=== PATIENT | male | born 1970 | race American Indian/Alaskan Native ===

== ENCOUNTER 2019-04-17 15:25 | Emergency (ER) | payer BC, MEDICAID ==
[2019-04-17] MEDS ORDERED: ASPIRIN 325 MG TAB PO ONE (16:19)
--- NOTE | 2019-04-17 17:03 | XRay Report ---
CHEST 2 VIEWS INDICATION / CLINICAL INFORMATION: Chest Pain. COMPARISON: One view of the chest from 01/23/2019. FINDINGS: SUPPORT DEVICES: A left ICD is in good position. HEART / MEDIASTINUM: No significant abnormality. LUNGS / PLEURA: No significant pulmonary or pleural abnormality. No pneumothorax. ADDITIONAL FINDINGS: No significant additional findings. IMPRESSION: 1. No acute abnormality of the chest. Signer Name: Eduardo Cheung MD Signed: 04/17/2019 4:59 PM Workstation Name: [id number]
[2019-04-17 17:14] LABS: Basophils # (Auto) 0.1 K/mm3 (0.0-0.1); Basophils % (Auto) 0.3 % (0.0-1.8); Eosinophils # (Auto) 0.1 K/mm3 (0.0-0.4); Eosinophils % (Auto) 0.6 % (0.0-4.3); Hemoglobin 16.3 gm/dl (11.8-15.2); Lymphocytes # (Auto) 1.6 K/mm3 (1.2-5.4); Lymphocytes % (Auto) 8.2 % (13.4-35.0); Mean Corpuscular HGB Conc 33 % (32-34); Mean Corpuscular Volume 85 fl (84-94); Monocytes # (Auto) 1.1 K/mm3 (0.0-0.8); Monocytes % (Auto) 5.5 % (0.0-7.3); Platelet Count 280 K/mm3 (140-440); Red Blood Count 5.78 M/mm3 (3.65-5.03); Red Cell Distribution Width 14.1 % (13.2-15.2)
[2019-04-17 17:26] LABS: BUN/Creatinine Ratio 14; Blood Urea Nitrogen 15 mg/dL (9-20); Calcium 9.4 mg/dL (8.4-10.2); Hemolysis Index 31
--- NOTE | 2019-04-17 22:41 | Emergency Department Report ---
ED Dizziness HPI - General Chief Complaint: High BP Stated Complaint: HBP Time Seen by Provider: 04/17/19 22:23 Source: patient, old records reviewed (neg stress test for ischemia, fixed 08/2018 Ef 47%) Mode of arrival: Ambulatory Limitations: No Limitations - History of Present Illness Initial Comments: 49-year-old male with a past medical history of hypertension, CAD with stent 2, CHF with EF of 47% on echo from 2016, and AICD presents to the hospital complains of lightheaded and tired feeling today while at work. 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 He states that he felt lightheaded and tired at work and went to the nurse and his blood pressure was 152/112. He states he feels like he is getting "sick" but only able to characterize it as lightheaded and tired. Patient does complain of some mild mucus production with cough and nasal congestion. He denies fever, chills, headache, sore throat, chest pain, shortness of breath, abdominal pain, or dysuria. Patient states he suffered from constipation with last bowel movement yesterday. He is compliant with all his medications include aspirin and Plavix. He cannot recall this had a more recent stress test since the one hand 2015. 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 Patient denies feeling lightheaded at this time. - Related Data Home Medications Medication Instructions Recorded Confirmed Last Taken Aspirin [Adult Low Dose Aspirin EC] 81 mg PO DAILY 09/12/15 09/12/15 09/12/15 Clopidogrel [Plavix] 75 mg PO QDAY 09/12/15 09/12/15 09/12/15 Furosemide [Lasix TAB] 40 mg PO QDAY 09/12/15 09/12/15 09/12/15 Isosorbide Dinitrate [Isordil 20 mg PO TID 09/12/15 09/12/15 09/12/15 Titradose] Lisinopril [Zestril TAB] 20 mg PO QDAY 09/12/15 09/12/15 09/10/15 Spironolactone [Aldactone] 25 mg PO QDAY 09/12/15 09/12/15 09/12/15 carvediloL [Coreg] 25 mg PO BID 09/12/15 09/12/15 09/10/15 Previous Rx's Medication Instructions Recorded Last Taken Type Azithromycin [Zithromax Z-VIMAL] 1 dose PO DAILY 5 Days tab 04/18/19 Unknown Rx Allergies Allergy/AdvReac Type Severity Reaction Status Date / Time No Known Allergies Allergy Verified 09/13/15 01:03 ED Review of Systems ROS: Stated complaint: HBP Other details as noted in HPI ED Past Medical Hx - Past Medical History Previous Medical History?: Yes Hx Hypertension: Yes Hx Heart Attack/AMI: Yes (x 5 last one 2012) Hx Congestive Heart Failure: Yes - Surgical History Past Surgical History?: Yes Hx Coronary Stent: Yes (x 2) Hx Pacemaker: Yes Hx Internal Defibrillator: Yes - Social History Smoking Status: Never Smoker Substance Use Type: Marijuana - Medications Home Medications: Home Medications Medication Instructions Recorded Confirmed Last Taken Type Aspirin [Adult Low Dose Aspirin EC] 81 mg PO DAILY 09/12/15 09/12/15 09/12/15 History Clopidogrel [Plavix] 75 mg PO QDAY 09/12/15 09/12/15 09/12/15 History Furosemide [Lasix TAB] 40 mg PO QDAY 09/12/15 09/12/15 09/12/15 History Isosorbide Dinitrate [Isordil 20 mg PO TID 09/12/15 09/12/15 09/12/15 History Titradose] Lisinopril [Zestril TAB] 20 mg PO QDAY 09/12/15 09/12/15 09/10/15 History Spironolactone [Aldactone] 25 mg PO QDAY 09/12/15 09/12/15 09/12/15 History carvediloL [Coreg] 25 mg PO BID 09/12/15 09/12/15 09/10/15 History Azithromycin [Zithromax Z-VIMAL] 1 dose PO DAILY 5 Days tab 04/18/19 Unknown Rx ED Physical Exam - General Limitations: No Limitations - Other Other exam information: General: No acute distress Head: Atraumatic Eyes: normal appearance ENT: Moist mucous membranes Neck: Normal appearance, no midline tenderness Chest: Clear to auscultation bilaterally CV: Regular rate and rhythm Abdomen: Soft, normal bowel sounds, nontender, nondistended, no rebound or guarding Back: Normal inspection Extremity: Normal inspection infection, full range of motion, no calf tenderness or leg edema Neuro: Alert O x 3, no facial asymmetry, speech clear, no gross motor sensory deficit Psych: Appropriate behavior Skin: No rash ED Course Vital Signs 04/17/19 16:17 Temperature 98.7 F Pulse Rate 85 Respiratory 16 Rate Blood Pressure 155/98 [Left] O2 Sat by Pulse 99 Oximetry - Reevaluation(s) Reevaluation #1: 04/17/19 22:46 pt provided his evening scheduled meds ED Medical Decision Making - Lab Data Result diagrams: 04/17/19 16:44 04/17/19 16:44 Lab Results 04/17/19 04/17/19 04/17/19 Range/Units 16:44 16:44 20:50 WBC 20.0 H (4.5-11.0) K/mm3 RBC 5.78 H (3.65-5.03) M/mm3 Hgb 16.3 H (11.8-15.2) gm/dl Hct 49.0 H (35.5-45.6) % MCV 85 (84-94) fl MCH 28 (28-32) pg MCHC 33 (32-34) % RDW 14.1 (13.2-15.2) % Plt Count 280 (140-440) K/mm3 Lymph % (Auto) 8.2 L (13.4-35.0) % [place] % (Auto) 5.5 (0.0-7.3) % Eos % (Auto) 0.6 (0.0-4.3) % Baso % (Auto) 0.3 (0.0-1.8) % Lymph # 1.6 (1.2-5.4) K/mm3 [place] # 1.1 H (0.0-0.8) K/mm3 Eos # 0.1 (0.0-0.4) K/mm3 Baso # 0.1 (0.0-0.1) K/mm3 Seg Neutrophils % 85.4 H (40.0-70.0) % Seg Neutrophils # 17.0 H (1.8-7.7) K/mm3 Sodium 140 (137-145) mmol/L Potassium 4.3 (3.6-5.0) mmol/L Chloride 99.9 (98-107) mmol/L Carbon Dioxide 25 (22-30) mmol/L Anion Gap 19 mmol/L BUN 15 (9-20) mg/dL Creatinine 1.1 (0.8-1.5) mg/dL Estimated GFR > 60 ml/min BUN/Creatinine Ratio 14 % Glucose 102 H (75-100) mg/dL Calcium 9.4 (8.4-10.2) mg/dL Troponin T < 0.010 < 0.010 (0.00-0.029) ng/mL Urine Color (Yellow) Urine Turbidity (Clear) Urine pH (5.0-7.0) Ur Specific [place] (1.003-1.030) Urine Protein (Negative) mg/dL Urine Glucose (UA) (Negative) mg/dL Urine Ketones (Negative) mg/dL Urine Blood (Negative) Urine Nitrite (Negative) Urine Bilirubin (Negative) Urine Urobilinogen (<2.0) mg/dL Ur Leukocyte Esterase (Negative) Urine WBC (Auto) (0.0-6.0) /HPF Urine RBC (Auto) (0.0-6.0) /HPF U Epithel Cells (Auto) (0-13.0) /HPF Urine Mucus /HPF 04/17/19 04/17/19 Range/Units 22:48 22:53 WBC (4.5-11.0) K/mm3 RBC (3.65-5.03) M/mm3 Hgb (11.8-15.2) gm/dl Hct (35.5-45.6) % MCV (84-94) fl MCH (28-32) pg MCHC (32-34) % RDW (13.2-15.2) % Plt Count (140-440) K/mm3 Lymph % (Auto) (13.4-35.0) % [place] % (Auto) (0.0-7.3) % Eos % (Auto) (0.0-4.3) % Baso % (Auto) (0.0-1.8) % Lymph # (1.2-5.4) K/mm3 [place] # (0.0-0.8) K/mm3 Eos # (0.0-0.4) K/mm3 Baso # (0.0-0.1) K/mm3 Seg Neutrophils % (40.0-70.0) % Seg Neutrophils # (1.8-7.7) K/mm3 Sodium (137-145) mmol/L Potassium (3.6-5.0) mmol/L Chloride (98-107) mmol/L Carbon Dioxide (22-30) mmol/L Anion Gap mmol/L BUN (9-20) mg/dL Creatinine (0.8-1.5) mg/dL Estimated GFR ml/min BUN/Creatinine Ratio % Glucose (75-100) mg/dL Calcium (8.4-10.2) mg/dL Troponin T < 0.010 (0.00-0.029) ng/mL Urine Color Yellow (Yellow) Urine Turbidity Clear (Clear) Urine pH 5.0 (5.0-7.0) Ur Specific [place] 1.026 (1.003-1.030) Urine Protein 100 mg/dl (Negative) mg/dL Urine Glucose (UA) Neg (Negative) mg/dL Urine Ketones Tr (Negative) mg/dL Urine Blood Neg (Negative) Urine Nitrite Neg (Negative) Urine Bilirubin Neg (Negative) Urine Urobilinogen 4.0 (<2.0) mg/dL Ur Leukocyte Esterase Neg (Negative) Urine WBC (Auto) 2.0 (0.0-6.0) /HPF Urine RBC (Auto) 2.0 (0.0-6.0) /HPF U Epithel Cells (Auto) < 1.0 (0-13.0) /HPF Urine Mucus Few /HPF - EKG Data -: EKG Interpreted by Vt EKG shows normal: sinus rhythm, ST-T waves (inf infarct, lsy y inb) - EKG Data When compared to previous EKG there are: no significant change - Radiology Data Radiology results: report reviewed (cxr: naf as per radiologist) - Medical Decision Making Patient complains of feeling bad status take but does not identify any specific symptoms except for lightheadedness and tired. Patient is complaining of a mild cough and mucus production. We'll become her with Z-Vimal given co-morbilities Outpatient follow-up. low suspicion for ACS given lack of chest pain, shortness of breath, and unchanged EKG 2 compared to previous, and troponin negative 3. - Differential Diagnosis pneumonia, viral syndrome, flu, CHF, cad, dehydration Critical Care Time: No Critical care attestation.: If time is entered above; I have spent that time in minutes in the direct care of this critically ill patient, excluding procedure time. ED Disposition Clinical Impression: Viral illness, Leukocytosis, Chronic hypertension Disposition: DC-01 TO HOME OR SELFCARE Is pt being admited?: No Does the pt Need Aspirin: No Condition: Stable Instructions: Hypertension (ED), Viral Syndrome (ED) Additional Instructions: It appears that you have an an infection but no bacterial source has been identified at this time. Given your significant medical problems he was treated with antibiotic. It is very important that you follow-up with your doctor in 2 days for reevaluation. If symptoms worsen as indicated by your discharge instructions then you may return here for reevaluation. Prescriptions: Azithromycin [Zithromax Z-VIMAL] 1 dose PO DAILY 5 Days tab Referrals: PRIMARY CARE, [Primary Care Provider] - 3-5 Days Time of Disposition: 00:15
[2019-04-17] MEDS ORDERED: carvediloL 6.25 MG TAB PO ONE (22:45)
[2019-04-17] MEDS ORDERED: CLOPIDOGREL 75 MG TAB PO ONE (22:45)
[2019-04-17 23:11] LABS: Bilirubin,Urine NEG (Negative); Blood,Urine NEG (Negative); Color,Urine Yellow (Yellow); Mucus,Urine FEW /HPF
[2019-04-18 00:13] VITALS: BP 153/98
== END 2019-04-18 00:27 | disposition home or self-care (01) ==
LOC: ED 15:25
DX: B34.9 Viral infection, unspecified (principal); D72.829 Elevated white blood cell count, unspecified; I11.0 Hypertensive heart disease with heart failure; I50.9 Heart failure, unspecified; I25.2 Old myocardial infarction; F12.10 Cannabis abuse, uncomplicated; Z95.5 Presence of coronary angioplasty implant and graft; Z95.810 Presence of automatic (implantable) cardiac defibrillator; Z79.899 Other long term (current) drug therapy
CPT/HCPCS: 36415; 71046; 80048; 81001; 84484; 85025; 93005; 93010